=== PATIENT | female | born 1940 | race Caucasian/White ===

== ENCOUNTER 2016-12-25 18:28 | Inpatient (IN) | payer MEDICARE, OTHER ==
--- NOTE | ~2016-12-25 | CN ---
Consultation Report [facility] [address] [place]. [address] NAME: MOISES PERALTA : 42 STATUS : ADM IN [facility]#: [id number] AGE: 76 ADM/REG DATE : 12/25/16 MR#: [id number] REPORT SERV DATE: 12/31/16 DICTATED BY: CHUCK OLSEN DATE: 12/31/16 REPORT STATUS : Draft TRANSCRIBED BY: MODL DATE: 12/31/16 SURGICAL CONSULTATION DATE OF CONSULTATION: 12/31/2016 HISTORY OF PRESENT ILLNESS: I was asked to see the patient for a history of pressure ulcers. She has been followed in the [facility] in the past initially for a nonhealing chest incision after bypass with bilateral EUGENIA harvesting. She has significant past medical history including morbid obesity, coronary artery disease, status post CABG, obstructive sleep apnea, chronic kidney disease stage 3 to 4, diastolic heart failure, myelodysplastic syndrome, and paroxysmal atrial fibrillation. The patient was documented to have moderate- to-severe protein-calorie malnutrition upon her admission to the hospital. She has had uncontrolled blood glucoses in the 500s. She is noncompliant with her diet. She is noncompliant with offloading. She is noncompliant with her medical care. I was asked to see the patient for her history of pressure ulcers of the sacrum, which we have seen in the past. On exam today, the patient has one small pressure ulcer that is stage I or II with no redness, swelling, or pain. Her other previous ulcers that were seen have healed. PAST MEDICAL HISTORY: As above with recurrent urinary tract infections and Charcot joints. PAST SURGICAL HISTORY: Coronary artery bypass with sternal infection, gastric bypass, hysterectomy, cholecystectomy, bilateral lower extremity venous stripping. ALLERGIES: PENICILLIN, LYRICA, PHENERGAN, AND SULFA. MEDICATIONS: Please see hospital chart. SOCIAL HISTORY: The patient lives with her daughter in [place]. She denies alcohol, tobacco, or illicit drug usage. FAMILY HISTORY: Positive for heart disease and stroke. REVIEW OF SYSTEMS: No headache, blurred vision, dizziness, chest pain, shortness of breath, cough, dyspnea on exertion, syncope, palpitations, jaundice, or itching. PHYSICAL EXAMINATION: GENERAL: Well-developed female, in no apparent distress. NECK: Supple. No adenopathy. CARDIOVASCULAR: Regular rate and rhythm. RESPIRATORY: Clear to auscultation. ABDOMEN: Obese, soft, nondistended. BACK: No CVA tenderness. The patient has a stage II pressure ulcer of the left buttock with no swelling, pain, drainage, or redness. Consultation Report [facility] [address] [place]. [address] NAME: MOISES PERALTA : 42 STATUS : ADM IN PAT#: [id number] AGE: 76 ADM/REG DATE : 12/25/16 MR#: [id number] REPORT SERV DATE: 12/31/16 DICTATED BY: CHUCK OLSEN DATE: 12/31/16 REPORT STATUS : Draft TRANSCRIBED BY: RUBÉN DATE: 12/31/16 ASSESSMENT: 1. Multiple medical problems as above. 2. Stage II pressure ulcer of left buttock with marked improvement with hospitalization, increased nutrition, offloading, and medical compliance. PLAN: Recommend continued medical optimization, offloading bed, supportive nutrition and follow up with me on an outpatient basis in the [facility] with continued dressings as ordered. /RUBÉN Chuck Olsen M.D. / [id number] CC: Mohit Valentine M.D.
--- NOTE | ~2016-12-25 | PUL ---
[address] [address] NAME: MOISES PERALTA : 41 STATUS : ADM IN PAT#: [id number] AGE: 76 ADM/REG DATE : 12/25/16 MR#: [id number] REPORT SERV DATE: 01/03/17 DICTATED BY: JENNIFER BENAVIDEZ DATE: 01/03/17 REPORT STATUS : Draft TRANSCRIBED BY: MODL DATE: 01/03/17 PULMONARY FUNCTION TEST Overnight oximetry was performed on room air. Total valid sampling time was 6 hours 13 minutes. Saturations were less than 88% for 15 minutes and 50 seconds. INTERPRETATION: Abnormal oximetry report. Consider oxygen titration study or sleep study. Clinical correlation is recommended. RANJITH/RUBÉN Jennifer Benavidez M.D. / [id number] CC: Mohit Valentine M.D.
--- NOTE | ~2016-12-25 | HP ---
History And Physical [facility] [address] [place]. [address] NAME: MOISES PERALTA : 41 STATUS : ADM IN PAT#: [id number] AGE: 76 ADM/REG DATE : 12/25/16 MR#: [id number] REPORT SERV DATE: 12/26/16 DICTATED BY: MALIHA TORRES DATE: 12/25/16 REPORT STATUS : Draft TRANSCRIBED BY: MODL DATE: 12/25/16 DATE OF ADMISSION: 12/25/2016 CHIEF COMPLAINT: Weakness. 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 The patient is accompanied by family members, son, daughter, and [id number], who reports that the patient over the last three weeks has been having progressive weakness, although family recognized approximately two weeks ago the patient reports that she believes symptoms occurred approximately three weeks ago, they have been constant, progressive, initially mild progressed to moderate now, currently quite severe as she is unable to perform her ADLs. Although, she does not report any pain or radiating symptoms; does have a little bit of nausea and reported anorexia with decreased taste for food. She has had approximately 12- pound weight drop, although she reports that she has been trying to drink as much as she could. Has also had very uncontrolled blood sugars in the 500s. Also reported to have drunk a few soda pops prior to coming in. The patient's diary of blood sugars have been at best low 200s, but has ranged from 200 to 500 over the last few weeks. The patient additionally has been on continued diuretics with b.i.d. type diuretics twice a day, although she is still making urine output. Does not report any dysuria, chest pain, fevers, chills, or any new rashes. Does have Charcot joint which cause limiting activity in her feet. Symptoms are worsened with activity, weakness, and is fairly global. There are no relieving symptoms. Symptoms are currently present. There have been no change in diuretic, has seen Dr. Manriquez's nurse practitioner approximately one month ago, and at that time her kidney function was well. However, on arrival to emergency room, she is noted to be in acute renal injury. The patient additionally complains of symptoms of shaking type symptoms which have also been reported in multiple other prior admissions. Family is fairly frustrated about recurrent episodes of being volume overloaded and then being dehydrated with more frequent dehydration admissions as well as having difficulties with potassium balance and is also requesting Nephrology consultation in order to make a full complete plan. REVIEW OF SYSTEMS: GENERAL: No fevers or chills, but generalized weakness. Fairly profound. EYES: No visual pain or change, but is unable to make eye shapes from left eye. ENT: No ear pain or sinuses. NEURO: No headache. Occasional fatigue and tiredness with sleeping episodes on family. SKIN: No rashes or bruising. RESPIRATORY: No shortness of breath. No wheezing. CV: No chest pain, but no edema. GI: Does have nausea, but no vomiting, diarrhea, or constipation. : No dysuria, hematuria, or urgency. Does have frequency with occasional incontinence that is not acute. History And Physical [address] [address] NAME: MOISES PERALTA : 42 STATUS : ADM IN [facility]#: [id number] AGE: 76 ADM/REG DATE : 12/25/16 MR#: [id number] REPORT SERV DATE: 12/26/16 DICTATED BY: MALIHA TORRES DATE: 12/25/16 REPORT STATUS : Draft TRANSCRIBED BY: RUBÉN DATE: 12/25/16 MUSCULOSKELETAL: No myalgias or arthralgias grossly, but generalized weakness. Does have chronic back discomfort. ENDO: Does have increased fatigue and very difficult to control blood sugars recently, increased doses of mealtime insulin to 50 units after discussion with Dr. Friedman, her nuclear fuel processing technician. 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 IMMUNOLOGIC: No rhinorrhea. PSYCH: No anxiety, but occasional mild confusion type sleeping type episodes. PAST MEDICAL HISTORY: Diabetes with peripheral neuropathy and left eye involvement, coronary disease status post CABG, obstructive sleep apnea, CKD stage 3-4 with baseline creatinine of 2, diastolic heart failure, recurrent UTIs with prior resistant E. coli, hypothyroidism, hyperlipidemia, hypertension, mild dysplastic syndrome, anemia on chronic Aranesp, paroxysmal atrial fibrillation, Charcot joints, chronic debility, recurrent admissions for dehydration and volume overload as well as hyper and hypokalemia per family. PAST SURGICAL HISTORY: CABG, sternal infection with hyperbaric oxygen treatment, stomach stapling, hysterectomy, cholecystectomy, bilateral vein stripping, buttock and groin abscesses with I and D, currently under care of Wound Care for chronic decubitus by Dr. Covarrubias and Home Health. ALLERGIES: TO PENICILLIN, LYRICA, PHENERGAN, AND SULFA. SOCIAL HISTORY: Lives with daughter in [place]. Does not smoke or drink. FAMILY HISTORY: Heart disease, and stroke. EKG rate 114, sinus tachycardia. Sinusoidal T wave V4 through V6. Q-wave in 3. These changes can be seen in EKGs in May 2016 and September 2016. HOME MEDICATIONS: 1. Tylenol. 2. Aspirin. 3. Lipitor. 4. Coreg. 5. Pepcid. 6. Uloric. 7. Neurontin. 8. [place]. 9. Toujeo. 10.Humalog. 11.Synthroid. 12.Zofran. 13.Klor-Con. 14.Aldactone. 15.Demadex. 16.Ultram. History And Physical [address] [address] NAME: MOISES PERALTA : 42 STATUS : ADM IN [facility]#: [id number] AGE: 76 ADM/REG DATE : 12/25/16 MR#: [id number] REPORT SERV DATE: 12/26/16 DICTATED BY: MALIHA TORRES DATE: 12/25/16 REPORT STATUS : Draft TRANSCRIBED BY: RUBÉN DATE: 12/25/16 PHYSICAL EXAMINATION: VITAL SIGNS: The patient has a blood pressure of 141/81, temperature 98.7, pulse 116, respirations 20, and O2 saturations 95% on room air. GENERAL: Elderly frail, but obese. No acute distress at rest. EYES: No scleral icterus. Decreased visual acuity in left eye. ENT: Nares patent. Dry mucous membranes. RESPIRATORY: Clear to auscultation. No wheezes. CV: Sinus tachycardiac. No pedal edema. Mild systolic ejection murmur. No rubs. No JVD. Cap refill less than 2 seconds. GI: Soft, nontender, and nondistended. Bowel sounds positive. : Deferred. MUSCULOSKELETAL: Moves all extremities x4; however, grossly and diffusely weak. SKIN: Warm and dry with positive tenting. Dry skin on lower extremities. No petechiae or bruising. LYMPH: No cervical or supraclavicular lymphadenopathy grossly. HEME: No bleeding or bruising. NEURO: Alert and oriented. Lower extremity strength approximately 3+/5 bilateral equal. Babinski is slightly decreased. Sensations decreased in bilateral lower extremities. Strength in hands symmetric, but approximately 4+ bilaterally. Gait untested due to weakness. Difficulty with lifting self from lying to a sitting position. Does have a resting tremor. Normal vocal suad. Occasionally sleeps on evaluation. PSYCH: Appropriate mood and affect. LABORATORY DATA: Urinalysis: Negative leukocyte esterase and nitrites. Sodium 132, potassium 5.0, chloride 93, bicarb 27, BUN and creatinine 83 and 2.38, and glucose 311. Troponin less than 0.02. Magnesium 2.2. Calcium 9.0. Heme profile: WBC 11.2, H and H 9.5 and 28.8, MCV 95.7 with platelets 255. INR 1.1. Portable chest: No acute cardiopulmonary findings. ASSESSMENT AND PLAN: 1. Acute kidney injury with chronic kidney disease followed by Dr. Manriquez. 2. Diabetes with poorly controlled blood sugars followed by Dr. Friedman. 3. Anemia, myelodysplastic syndrome, followed by Dr. Paulson. 4. Weakness, fairly profound. 5. Heart failure with preserved ejection fraction. 6. Paroxysmal atrial fibrillation. 7. Decubitus ulcers present on arrival, followed by Dr. Covarrubias in Wound Care. PLAN: 1. KEE with CKD. Continue to monitor urine electrolytes. Stop Demadex and spironolactone. The patient is clinically volume depleted with dry mucous membranes. Temporal skin tenting. Family requesting Renal consultation also as the patient has History And Physical [address] [address] NAME: MOISES PERALTA : 42 STATUS : ADM IN [facility]#: [id number] AGE: 76 ADM/REG DATE : 12/25/16 MR#: [id number] REPORT SERV DATE: 12/26/16 DICTATED BY: MALIHA TORRES DATE: 12/25/16 REPORT STATUS : Draft TRANSCRIBED BY: MODL DATE: 12/25/16 had multiple frequent hospitalizations for similar episode. The patient reports having a 12-pound weight loss which appears possibly secondary due to volume. We will additionally for completeness of workup check CPK, myoglobin, and cortisol. Gentle IV fluids given in the emergency room to reassess clinical response. 2. Diabetes type 2 with hyperglycemia, not well controlled. The patient has had recent increase. I am concerned also with diet choices, diabetic education along with changing from home use of currently at 230 units of insulin with 50 with meals and 80 units of Toujeo. We will do transition to 30 units b.i.d. Levemir, 10 with meals with diet control and adjust as needed. A1c ordered. Diabetic Education also consult. 3. Anemia with myelodysplastic disorder. Follows with Dr. Paulson. Monitor CBC. 4. Weakness. Monitor lytes likely secondary to KEE as the patient has similar weaknesses in the past. We will additionally check CPK. Hold statin. Has fairly profound weakness on physical exam, we will need PT/OT evaluation. Questionable rehab may be of benefit. 5. Heart failure with preserved ejection fraction, volume depleted. Monitor I's and O's. Gentle IV fluids. 6. Paroxysmal atrial fibrillation. Beta laz. 7. Decubitus ulcers. Wound Care consult. Follows with Dr. Covarrubias in the Wound Care Clinic. All questions answered with the patient and family. DISPOSITION: Pending response clinically. DDN/MODL Maliha Torres MD / [id number] CC: Mohit Moore M.D.
--- NOTE | ~2016-12-25 | IDS ---
Interim Discharge Summary [facility] [address] [place]. [address] NAME: MOISES PERALTA : 42 STATUS : ADM IN [facility]#: [id number] AGE: 76 ADM/REG DATE : 12/25/16 MR#: [id number] REPORT SERV DATE: 01/06/17 DICTATED BY: ALLYN CARR DATE: 01/05/17 REPORT STATUS : Draft TRANSCRIBED BY: MODL DATE: 01/05/17 ADMISSION DATE: 12/25/2016 DISCHARGE DATE: Interim summary covers period 12/30/2009 to 01/05/2010. CURRENT DIAGNOSES: 1. 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 Improving on corticosteroids. On Uloric 40 mg daily with uric acid pre-acute event 10.2. 2. Uncontrolled diabetes with hemoglobin A1c of 10.1. Blood sugars earlier this week 300 and 400s. Currently improved control on high dose basal and bolus insulin therapy with blood sugars today a.c. 159, 160, and 161. 3. Acute kidney injury improving with creatinine on admission 2.38, today 1.37. 4. Chronic kidney disease 3 to 4. 5. Rectal and perirectal pain with ulcerations improving with topical therapy. 6. Left Charcot foot. Followed by podiatry, Dr. Huitron in the outpatient setting. 7. Chronic diastolic heart failure. 8. Coronary artery disease, post coronary artery bypass grafting. 9. Hypertension. 10.Paroxysmal atrial fibrillation. 11.Morbid obesity. 12.Myelodysplastic syndrome with chronic anemia. Procrit this week. 13.Hypothyroid, on replacement. 14.Chronic pain syndrome. 15.Recurrent urinary tract infections with voiding dysfunction and occasional self intermittent catheterization at home, currently with Andrade catheter. 16.Sleep apnea, per overnight oximetry. O2 declined because of nasal irritation at this time. 17.Hyperlipidemia. 18.Peripheral arterial disease by exam. 19.Wound, present on admission, followed by Dr. Covarrubias in Wound Clinic. OPERATIONS AND PROCEDURES: None. INTERIM SUMMARY: This is a 76-year-old white female, who was admitted by Dr. Valladares on 12/25/2016, with acute kidney injury and uncontrolled diabetes in the setting of multiple comorbidities as described on admission history and physical examination. HOSPITAL COURSE: Her hospital course from admission through 12/29 is as outlined on interim summary dictated by Simon Domínguez. Interim summary, 12/30 through 01/05 as noted by Simon Domínguez, she developed acute pain in her right wrist 2nd and 3rd MCPs and some DIPs and PIPs with obvious synovitis. Imaging of her right hand disclosed no acute abnormality with mild osteoarthritic changes, right hand. There were minimal marginal erosions at the distal aspect of the proximal 4th phalanx as well as some erosive change of ulnar styloid process. Vascular calcification was noted, but Interim Discharge Summary [address] [place]. [address] NAME: MOISES PERALTA : 42 STATUS : ADM IN PAT#: [id number] AGE: 76 ADM/REG DATE : 12/25/16 MR#: [id number] REPORT SERV DATE: 01/06/17 DICTATED BY: ALLYN CARR DATE: 01/05/17 REPORT STATUS : Draft TRANSCRIBED BY: RUBÉN DATE: 01/05/17 arterial flow studies did not disclose occlusive disease. When seen by the undersigned, it was noted she was on Uloric 40 mg daily. A uric acid was checked and was 10.2. Acute gout was thought to be a possibility. She was initially given IV corticosteroids with fairly dramatic improvement. Improvement has continued with tapering to oral corticosteroids and topical Voltaren gel. Formal Rheumatology consultation needed as an outpatient. Her blood sugar control on the was not adequate with blood sugars on the rising into the 400s. With intensification of her basal bolus correction regimen, blood sugar control has improved as noted above. She has had continued improvement in her acute kidney injury. She was seen by Nephrology on admission to have subsequently signed off. Current creatinine is as noted. She developed intense rectal and perirectal pain. Examination disclosed some pressure phenomena plus superficial ulcerations. She does not have an impaction or mass on rectal exam. With local care, she is symptomatically improved. She has myelodysplastic syndrome. Hemoglobins have been stable in the 8. She received Procrit on the . A B12 level today is 924 and ferritin 351. Initially during her hospitalization, there was a hope by the patient's family that she would qualify for [facility]. At this time, her physical capabilities preclude that as a destination. [place] [facility]. Hospitalist care to be assumed by [facility] [place] [address] team on 01/06/2017. DD/MODL Allyn Carr M.D. / [id number] CC: Mohit Valentine M.D.
--- NOTE | ~2016-12-25 | DS ---
Discharge Summary [facility] [address] [place]. [address] NAME: MOISES PERALTA : 42 STATUS : DIS IN PAT#: [id number] AGE: 76 ADM/REG DATE : 12/25/16 MR#: [id number] REPORT SERV DATE: 01/08/17 DICTATED BY: AVERY WHALEY DATE: 01/07/17 REPORT STATUS : Draft TRANSCRIBED BY: MODL DATE: 01/07/17 ADMISSION DATE: 12/25/2016 DISCHARGE DATE: 01/07/2017 DISCHARGE DIAGNOSES: 1. Suspected polyarticular gout, with positive JAKE. The patient had some response to steroids. 2. Uncontrolled insulin-dependent diabetes type 2. 3. Acute kidney injury on chronic kidney disease, baseline stage 3 to 4. Creatinine on discharge is 1.3. 4. Rectal and perirectal pain due to superficial ulcerations, improving with topical therapy. 5. Anemia with myelodysplastic syndrome, on Procrit. 6. Chronic diastolic congestive heart failure. 7. Paroxysmal atrial fibrillation. 8. Stage II decubitus ulcer. 9. Hypertension. 10.Coronary artery disease with history of CABG. 11.Obstructive sleep apnea. 12.Morbid obesity. 13.Recurrent urinary tract infections. 14.Hypothyroidism. CONSULTS: 1. Dr. Abernathy of Nephrology. 2. Dr. Covarrubias of Surgery. 3. Dr. Benavidez of Pulmonology. PROCEDURES: None. HOSPITAL COURSE: This is a 76-year-old lady with multiple medical conditions as mentioned above who was initially admitted to the hospital with generalized weakness and acute kidney injury. For details, please refer to H and P dictated by Dr. Valladares. Also, refer to interim discharge summaries by Simon Domínguez as well as Dr. Carr. I assumed care of this patient on 01/05/2017 and actually by then, the patient was ready for discharge and awaiting a halfway facility placement. At that point in time, her main issue was inflamed joints in her right hand. The patient does have a history of gout, and she has been on Uloric. Dr. Carr had already started steroids, and the patient had some response to the steroids. The patient does actually have an appointment with Dr. Uriostegui, a chief fishery division in a week and a half as an outpatient, which she was strongly encouraged to make. Otherwise, all of the patient's presenting medical complaints as well as chronic medical conditions have either been resolved or been stable. The patient is now being discharged to [facility] to continue rehab. DISPOSITION: Discharged to [facility]. Discharge Summary [address] [address] NAME: MOISES PERALTA : 42 STATUS : DIS IN PAT#: [id number] AGE: 76 ADM/REG DATE : 12/25/16 MR#: [id number] REPORT SERV DATE: 01/08/17 DICTATED BY: AVERY WHALEY DATE: 01/07/17 REPORT STATUS : Draft TRANSCRIBED BY: RUBÉN DATE: 01/07/17 FOLLOWUP: 1. Please follow up with PCP in the next one to two weeks. 2. Please follow up with Dr. Uriostegui as already scheduled. A total of 40 minutes spent in coordinating this patient's discharge today. TRAE/RUBÉN Avery Whaley MD / [id number] CC: MD Bharat Castaneda M.D.
--- NOTE | ~2016-12-25 | IDS ---
Interim Discharge Summary [facility] [address] [place]. [address] NAME: MOISES PERALTA : 42 STATUS : ADM IN PAT#: [id number] AGE: 76 ADM/REG DATE : 12/25/16 MR#: [id number] REPORT SERV DATE: 12/29/16 DICTATED BY: PHILLIP MEDRANO DATE: 12/29/16 REPORT STATUS : Draft TRANSCRIBED BY: MODL DATE: 12/29/16 ADMISSION DATE: 12/25/2016 DISCHARGE DATE: CURRENT INTERIM DIAGNOSES: List includes: 1. Acute kidney injury on chronic kidney disease, stage 3 to 4, resolved to baseline, most recent creatinine 1.87. 2. Acute encephalopathy, metabolic. 3. Right hand and wrist pain with x-ray showing atherosclerotic changes in the radial artery. 4. Diabetes type 2, uncontrolled, hemoglobin A1c 10.1. 5. Weakness and fall. 6. Hypoalbuminemia, most recent albumin 2.4. 7. Chronic anemia. 8. Chronic diastolic heart failure. 9. History of coronary artery disease and CABG. 10.History of Charcot, left lower extremity. 11.Morbid obesity. 12.Chronic debility. 13.Myelodysplastic syndrome. HISTORY OF PRESENT ILLNESS: A 76-year-old female with significant comorbid diseases, presented with weakness to [facility] Emergency Room. Please see initial H and P of Dr. Deuce Valladares. The patient admitted to the Hospitalist Service for further evaluation and treatment. Initially, the patient was given hydration with IV fluids, and diuretics were stopped as she was found to be in acute kidney injury and clinically dehydrated. PROCEDURES AND IMAGING DURING THIS ADMISSION: Include x-ray of the right wrist showing no acute fracture but acceleration of atherosclerotic changes in the radial artery. CONTINUATION OF HOSPITAL COURSE: I began seeing the patient on 12/26/2016. Consults during this admission also included Nephrology associates. Kidney function had seem to at least plateau with her creatinine trending to 2.34. Her diuretics were continued on hold and IV hydration was continued for approximately 2.5 L and this continued to improve her kidney function with creatinine falling the following day to 1.97. She was overall feeling better and not quite as weak but did complain of some right wrist pain. On exam, she did have some snuffbox tenderness and x-ray as stated above was ordered. Her torsemide was then resumed at a lower dose and have discussed extensively with Nephrology as she had been on a rather hefty dose of torsemide as an outpatient as she is now currently on 20 mg twice a day. She did have a history of obstructive sleep apnea but does not wear CPAP, so an overnight oximetry test was ordered which did come back quite significant for hypoxemia, so she will definitely need oxygen therapy as an outpatient following discharge. She continued to do reasonably well, although on the morning of 12/29/2016, the patient was extremely drowsy and some encephalopathy noted. She did receive a dose of Klonopin the night before and this was Interim Discharge Summary [address] [address] NAME: MOISES PERALTA : 42 STATUS : ADM IN PAT#: [id number] AGE: 76 ADM/REG DATE : 12/25/16 MR#: [id number] REPORT SERV DATE: 12/29/16 DICTATED BY: PHILLIP MEDRANO DATE: 12/29/16 REPORT STATUS : Draft TRANSCRIBED BY: RUBÉN DATE: 12/29/16 discontinued, and ammonia was checked which came back negative. She had no focal deficits, and as the day progressed, she slowly improved and was able to converse and was oriented to person, and place and family members. She did persist to have right hand and wrist pain, and an arterial ultrasound was ordered of this right upper extremity with consideration for CT or MRI of the wrist if pain continues. Discussed at length with the daughter and at bedside the patient's multiple comorbidities and functional decline and the likely difficult recovery from all of this. Physical therapy and occupational Therapy saw the patient, did recommend rehab which is the current disposition. Nephrology has recommended two-week follow up with them. FANNY/RUBÉN Phillip Medrano NP / [id number] CC: Mohit Moore M.D.
--- NOTE | ~2016-12-25 | CN ---
Consultation Report [facility] [address] [facility] [place] [place]. [address] NAME: MOISES PERALTA : 42 STATUS : ADM IN PAT#: [id number] AGE: 76 ADM/REG DATE : 12/25/16 MR#: [id number] REPORT SERV DATE: 12/26/16 DICTATED BY: ODALYS BONILLA DATE: 12/26/16 REPORT STATUS : Draft TRANSCRIBED BY: MODL DATE: 12/26/16 NEPHROLOGY CONSULTATION DATE OF CONSULTATION: 12/26/2016 CHIEF COMPLAINT: Weakness. HISTORY OF PRESENT ILLNESS: Mrs. Peralta is a pleasant 76-year-old white female with past medical history of diabetes mellitus, hypertension, chronic kidney disease stage 3/4, followed by Dr. Marco A Manriquez in our practice. She has multiple other medical problems including heart failure with preserved ejection fraction, myelodysplastic syndrome, anemia of chronic disease, and paroxysmal atrial fibrillation. She presents to the hospital with three weeks of progressive weakness to the point she has been unable to stand up or get out of bed and has been unable to perform her activities of daily living. She has had some nausea, but no chest pain or shortness of breath. No diarrhea or constipation. Her blood sugars have been running in the 500s. She has been on chronic diuretics for edema, torsemide 60 mg in the morning and 40 mg at night. The daughter states that this has not been recently changed. On presentation, her creatinine was 2.3. Baseline creatinine ranges 1.5 to 2.0. Her diuretics have been transiently put on hold and she is receiving intravenous hydration. PAST MEDICAL HISTORY: 1. Chronic kidney disease stage 3, followed by Dr. Marco A Manriquez. 2. Coronary artery disease, status post CABG. 3. Obstructive sleep apnea. 4. Heart failure with preserved ejection fraction. 5. Recurrent urinary tract infections. 6. Hypothyroidism. 7. Hyperlipidemia. 8. Hypertension. 9. Myelodysplastic syndrome. 10.Anemia of chronic disease. 11.Paroxysmal atrial fibrillation. PAST SURGICAL HISTORY: 1. CABG. 2. Sternal wound infection requiring debridement. 3. Hysterectomy. 4. Cholecystectomy. 5. Bilateral vein stripping. 6. Debridement of buttock and groin abscesses. ALLERGIES: PENICILLIN, LYRICA, PHENERGAN, AND SULFA. Consultation Report [facility] [address] [facility] [place] [place]. [address] NAME: MOISES PERALTA : 42 STATUS : ADM IN PAT#: [id number] AGE: 76 ADM/REG DATE : 12/25/16 MR#: [id number] REPORT SERV DATE: 12/26/16 DICTATED BY: ODALYS BONILLA DATE: 12/26/16 REPORT STATUS : Draft TRANSCRIBED BY: RUBÉN DATE: 12/26/16 SOCIAL HISTORY: Lives with her daughter in [place], [place]. Does not smoke cigarettes or drink alcohol. FAMILY HISTORY: Heart disease and stroke. HOME MEDICATIONS: 1. Acetaminophen 500 mg two tablets daily. 2. Aspirin 81 q. day. 3. Atorvastatin 40 q. day. 4. Carvedilol 3.125 twice a day. 5. Famotidine 20 q. day. 6. Uloric 40 q. day. 7. Neurontin 300 three times a day. 8. Hydrocodone 10/325 q.6 hours. 9. Lantus insulin 80 units at bedtime. 10.Lispro insulin 15 units t.i.d. 11.Synthroid 25 mcg q. day. 12.Potassium chloride 10 mEq q. day. 13.Spironolactone 25 mg q. day. 14.Torsemide 60 mg every morning and 40 mg at night. 15.Tramadol 50 q.6 hours p.r.n. pain. REVIEW OF SYSTEMS: All systems reviewed and negative excluding those mentioned and highlighted in the history of present illness. PHYSICAL EXAMINATION: VITAL SIGNS: Blood pressure 131/74, oxygen saturation 93%, temperature 96.3, pulse 106, respiratory rate 18, and oxygen saturation 96%. GENERAL: This is a pleasant elderly white female resting comfortably, in no acute distress. HEENT: Normocephalic, atraumatic. Oropharynx is clear. No exudate. NECK: Supple. No JVD or thyromegaly. No carotid bruits. Trachea midline. No stridor. CARDIOVASCULAR: Irregular S1, S2. No rubs or gallops. Point of maximal impulse nondisplaced. RESPIRATORY: Mostly clear. No wheezes, rhonchi, tachypnea, or accessory muscles in use. GASTROINTESTINAL: Abdomen is obese, soft, nontender, nondistended. No hepatosplenomegaly appreciated. EXTREMITIES: No cyanosis or clubbing. She has trace to 1+ pitting edema. LYMPH: No supraclavicular, cervical, or axillary adenopathy. SKIN: No rash or breakdown. Normal turgor. LABORATORIES AND DIAGNOSTIC DATA: Sodium 131, potassium 4.7, chloride 94, bicarb 27, BUN 79, creatinine 2.34, glucose 370. CPK is 21. Urinalysis shows bacteria, but no pyuria with specific gravity of 1.009. Consultation Report [address] [place]. [address] NAME: MOISES PERALTA : 42 STATUS : ADM IN PAT#: [id number] AGE: 76 ADM/REG DATE : 12/25/16 MR#: [id number] REPORT SERV DATE: 12/26/16 DICTATED BY: ODALYS BONILLA DATE: 12/26/16 REPORT STATUS : Draft TRANSCRIBED BY: RUBÉN DATE: 12/26/16 ASSESSMENT: 1. Weakness and failure to thrive. 2. Mild acute kidney injury on chronic kidney disease stage 4 versus progression of chronic kidney disease. I suspect she has mild prerenal azotemia. 3. Diabetes mellitus with poor glycemic control. 4. Mild hyponatremia, which is likely related to hyperglycemia. 5. Atrial fibrillation ? 6. Heart failure through preserved ejection fraction. 7. Myelodysplastic syndrome. PLAN: 1. Agree with interruption diuretics and gentle fluids. We will cut the rate down to 75 mL an hour and lock after 2 L. 2. Serial labs. 3. We will follow with you. Thank you for this consultation. JESSICA/RUBÉN Odalys Bonilla M.D. / [id number] CC: Mohit Moore M.D.
[2016-12-25 17:24] LABS: BASOPHILS 0.1 %; BASOPHILS ABSOLUTE 0.01 10/3/uL (0.0-0.16); EOSINOPHILS 1.4 %; EOSINOPHILS ABSOLUTE 0.16 10/3/uL (0.0-0.53); HEMATOCRIT 28.8 % (36.0-48.0); HEMOGLOBIN 9.5 g/dL (12.0-16.0); IMMATURE GRANULOCYTES 0.9 %; LYMPHOCYTES 6.9 %; LYMPHOCYTES ABSOLUTE 0.78 10/3/uL (0.67-4.30); MANUAL DIFF NO %; MEAN CORPUSCULAR HEMOGLOB 31.6 pg (26.0-34.0); MEAN CORPUSCULAR VOLUME 95.7 fL (80-100); MEAN PLATELET VOLUME 9.1 fL (9.2-13.0); MONOCYTES 6.7 %; MONOCYTES ABSOLUTE 0.75 10/3/uL (0.21-1.20); NEUTROPHILS ABSOLUTE 9.43 10/3/uL (2.02-8.40); PLATELET COUNT 255 10/3/uL (150-400); RBC DISTRIBUTION WIDTH 16.1 % (12.0-16.0); RED CELL COUNT 3.01 10/6/uL (4.0-5.6); WHITE BLOOD CELLS 11.2 10/3/uL (4.5-10.5)
[2016-12-25 17:31] LABS: INTERNATIONAL NORMAL RATI 1.1 UNITS (-); PARTIAL THROMBO TIME 36.2 SEC (22.5-37.2); PROTIME (NOT ORD) 14.3 SEC (12.0-14.5)
[2016-12-25 17:40] LABS: CHEST PAIN PROFILE TAT 0 Hrs 20 Mins; CO2 (CARBON DIOXIDE) 27 MMOL/L (24-34); TROPONIN I <0.02 NG/ML (<0.05)
[2016-12-25 17:43] LABS: BUN (BLOOD UREA NITROGEN) 83 MG/DL (6-23); CHLORIDE, SERUM 93 MMOL/L (96-112); CREATININE 2.38 MG/DL (0.55-1.02); GFR AFRICAN AMERICAN 22 ML/MIN (>=60); GFR NON AFRICAN AMERICAN 19 ML/MIN (>=60); GLUCOSE, SERUM 311 MG/DL (60-99); SODIUM, SERUM 132 MMOL/L (135-148)
[2016-12-25 17:45] LABS: ASCORBIC ACID (UR NOT ORDER) NEG (NEG); BILIRUBIN, URINE NEGATIVE (NEG); ER URINALYSIS TAT 0 Hrs 07 Mins; KETONE, URINE NEGATIVE (NEG); LEUKOCYTE ESTERASE(NOT OR NEG (NEG); NITRITE (URINE) NEG (NEG); WBC (NOT ORDERED) (RFLEX) 1 (0-5)
[~2016-12-25 18:28] MED LIST: ACET500CAP PO; ALPHA LIPOIC PO; ALPHA LIPOIC300 MG PO; ALPHA-LIPOIC50 MG PO; AMARYL4 PO; ARANESP; ARANESP IM; ASAB PO; BEN25 PO; BIOTIN5 MG PO; CEFAZ1 IV; CEFT2 PO; CEFT5 PO; CIP2 PO; CITRUCEL500 MG PO; CITRUCELSF PO; COREG3 PO; COREG6 PO; CRESTOR10 PO; CRESTOR40 MG PO; CYANO1000T PO; DEMA100 PO; DEMA20 PO; DURICEF PO; FLORASTOR250 MG PO; FORTAMET500 MG PO; GLUCPH PO; GLUMETZA500 MG PO; HALF81 PO; HARD NAILS OR; HUMALOG SC; HUMALOGMIX SC; IMOD PO; ISOSORB DIN30 MG PO; KDUR10 PO; KDUR20 PO; KLOR-CON 1010 MEQ PO; KLOR-CON M2020 MEQ PO; KOMBIGLYZE XR1 EAC1 PO; L40 PO; LANTUS SC; LEVOTHYROXIN25 MCG PO; LIPITOR40 PO; MAGNEBIND PO; MCZ25 PO; MIRALAXPKT PO; MULTIPLE VIT PO; MULTIVIT/MIN PO; NASAL MOIST0.65 % NAS; NEUR100 PO; NEUR300 PO; NITROQUICK0.4 MG SL; NITROSTAT0.4 MG SL; NORCO1 TA1 PO; NORCO1 TAB PO; NOVOLOG; OXYCOD PO; PCET PO; PEP20 PO; PLAVIX PO; PRIN10 PO; PRIN20 PO; PRIN5 PO; PROBIOTIC PO; PYR100B; ROCEPH IM; SPIRO25 PO; SYN.025B PO; THERAPEUTIC PO; THERGRANM; TOUJEO SC; TOVIAZ4 MG PO; ULORIC40 MG PO; ULTRAM50 PO; VESICARE10 MG PO; VIB50 PO; VITAMIN B-121000 MC1 SL; Z5 PO; ZESTRIL10 MG PO; ZOFRAN4 PO
[2016-12-25 23:32] LABS: A/G RATIO 0.7 (0.7-1.9); ALBUMIN 2.7 G/DL (3.5-5.0); CHLORIDE, SERUM 93 MMOL/L (96-112); CO2 (CARBON DIOXIDE) 28 MMOL/L (24-34); CREATININE 2.38 MG/DL (0.55-1.02); FREE T4 0.89 NG/DL (0.76-1.46); GFR AFRICAN AMERICAN 22 ML/MIN (>=60); GFR NON AFRICAN AMERICAN 19 ML/MIN (>=60); GLOBULIN 4.1 G/DL (2.5-4.1); GLUCOSE, SERUM 326 MG/DL (60-99); PHOSPHORUS, SERUM 2.8 MG/DL (2.5-4.5); POTASSIUM, SERUM 5.5 MMOL/L (3.5-5.3); SGOT(AST) 9 U/L (5-40); SGPT(ALT) 16 U/L (5-65); SODIUM, SERUM 130 MMOL/L (135-148); TOTAL BILIRUBIN 0.3 MG/DL (0-1.2); TOTAL PROTEIN 6.8 G/DL (6.0-8.5)
[2016-12-25 23:33] LABS: ALKALINE PHOSPHATASE 141 U/L (45-117); BUN (BLOOD UREA NITROGEN) 79 MG/DL (6-23)
[2016-12-26 01:17] LABS: PROCALCITONIN 1.33 ng/mL (<0.5)
[2016-12-26 01:46] LABS: BASOPHILS 0.1 %; BASOPHILS ABSOLUTE 0.01 10/3/uL (0.0-0.16); EOSINOPHILS 2.3 %; EOSINOPHILS ABSOLUTE 0.21 10/3/uL (0.0-0.53); HEMATOCRIT 26.2 % (36.0-48.0); HEMOGLOBIN 8.6 g/dL (12.0-16.0); IMMATURE GRANULOCYTES 0.6 %; IMMATURE GRANULOCYTES ABSOLUTE 0.06 10/3/uL (0.0-0.11); LYMPHOCYTES 13.5 %; LYMPHOCYTES ABSOLUTE 1.25 10/3/uL (0.67-4.30); MEAN CORPUS HGB CONC 32.8 g/dL (32.0-36.0); MEAN CORPUSCULAR HEMOGLOB 31.4 pg (26.0-34.0); MEAN CORPUSCULAR VOLUME 95.6 fL (80-100); MEAN PLATELET VOLUME 9.4 fL (9.2-13.0); MONOCYTES 5.1 %; MONOCYTES ABSOLUTE 0.47 10/3/uL (0.21-1.20); NEUTROPHILS 78.4 %; NEUTROPHILS ABSOLUTE 7.28 10/3/uL (2.02-8.40); PLATELET COUNT 258 10/3/uL (150-400); RBC DISTRIBUTION WIDTH 16.5 % (12.0-16.0); RED CELL COUNT 2.74 10/6/uL (4.0-5.6); WHITE BLOOD CELLS 9.3 10/3/uL (4.5-10.5)
[2016-12-26 01:53] LABS: MANUAL DIFF NO %
[2016-12-26 02:05] LABS: A/G RATIO 0.6 (0.7-1.9); ALBUMIN 2.5 G/DL (3.5-5.0); ALKALINE PHOSPHATASE 137 U/L (45-117); BUN (BLOOD UREA NITROGEN) 79 MG/DL (6-23); CALCIUM, SERUM 8.6 MG/DL (8.5-10.4); CHLORIDE, SERUM 94 MMOL/L (96-112); CO2 (CARBON DIOXIDE) 27 MMOL/L (24-34); CPK 21 U/L (0-200); CREATININE 2.34 MG/DL (0.55-1.02); GFR AFRICAN AMERICAN 23 ML/MIN (>=60); GFR NON AFRICAN AMERICAN 20 ML/MIN (>=60); GLOBULIN 3.9 G/DL (2.5-4.1); GLUCOSE, SERUM 370 MG/DL (60-99); MYOGLOBIN, SERUM 52 NG/ML (0-85); POTASSIUM, SERUM 4.7 MMOL/L (3.5-5.3); SGOT(AST) 10 U/L (5-40); SGPT(ALT) 14 U/L (5-65); SODIUM, SERUM 131 MMOL/L (135-148); TOTAL BILIRUBIN 0.3 MG/DL (0-1.2); TOTAL PROTEIN 6.4 G/DL (6.0-8.5); TROPONIN I <0.02 NG/ML (<0.05)
[2016-12-26 07:40] LABS: CREATININE, URINE 48.4 MG/DL
[2016-12-26 10:46] LABS: GLYCOHEMOGLOBIN (HbA1c) 10.1 % (4.7-6.1)
[2016-12-27 04:44] LABS: ALBUMIN 2.4 G/DL (3.5-5.0); BUN (BLOOD UREA NITROGEN) 77 MG/DL (6-23); CO2 (CARBON DIOXIDE) 26 MMOL/L (24-34); CREATININE 1.97 MG/DL (0.55-1.02); GFR AFRICAN AMERICAN 28 ML/MIN (>=60); GFR NON AFRICAN AMERICAN 24 ML/MIN (>=60); POTASSIUM, SERUM 5.1 MMOL/L (3.5-5.3)
[2016-12-27 04:47] LABS: CALCIUM, SERUM 8.4 MG/DL (8.5-10.4); CHLORIDE, SERUM 104 MMOL/L (96-112); GLUCOSE, SERUM 253 MG/DL (60-99); SODIUM, SERUM 139 MMOL/L (135-148)
[2016-12-28 06:08] LABS: BASOPHILS 0.1 %; BASOPHILS ABSOLUTE 0.01 10/3/uL (0.0-0.16); EOSINOPHILS 2.3 %; EOSINOPHILS ABSOLUTE 0.19 10/3/uL (0.0-0.53); HEMATOCRIT 28.4 % (36.0-48.0); HEMOGLOBIN 8.8 g/dL (12.0-16.0); IMMATURE GRANULOCYTES 3.1 %; IMMATURE GRANULOCYTES ABSOLUTE 0.26 10/3/uL (0.0-0.11); LYMPHOCYTES 14.4 %; LYMPHOCYTES ABSOLUTE 1.19 10/3/uL (0.67-4.30); MEAN CORPUSCULAR HEMOGLOB 30.2 pg (26.0-34.0); MEAN CORPUSCULAR VOLUME 97.6 fL (80-100); MEAN PLATELET VOLUME 9.6 fL (9.2-13.0); MONOCYTES 7.6 %; MONOCYTES ABSOLUTE 0.63 10/3/uL (0.21-1.20); NEUTROPHILS 72.5 %; NEUTROPHILS ABSOLUTE 6.01 10/3/uL (2.02-8.40); PLATELET COUNT 297 10/3/uL (150-400); RBC DISTRIBUTION WIDTH 16.4 % (12.0-16.0); RED CELL COUNT 2.91 10/6/uL (4.0-5.6); WHITE BLOOD CELLS 8.3 10/3/uL (4.5-10.5)
[2016-12-28 06:09] LABS: MANUAL DIFF NO %
[2016-12-28 06:19] LABS: BUN (BLOOD UREA NITROGEN) 65 MG/DL (6-23); CALCIUM, SERUM 9.5 MG/DL (8.5-10.4); CHLORIDE, SERUM 101 MMOL/L (96-112); CO2 (CARBON DIOXIDE) 24 MMOL/L (24-34); CREATININE 1.87 MG/DL (0.55-1.02); GFR AFRICAN AMERICAN 30 ML/MIN (>=60); GFR NON AFRICAN AMERICAN 26 ML/MIN (>=60); GLUCOSE, SERUM 275 MG/DL (60-99); POTASSIUM, SERUM 4.7 MMOL/L (3.5-5.3); SODIUM, SERUM 137 MMOL/L (135-148)
[2016-12-30 05:03] LABS: BASOPHILS 0.1 %; BASOPHILS ABSOLUTE 0.01 10/3/uL (0.0-0.16); EOSINOPHILS 0.5 %; EOSINOPHILS ABSOLUTE 0.06 10/3/uL (0.0-0.53); HEMATOCRIT 28.7 % (36.0-48.0); HEMOGLOBIN 8.9 g/dL (12.0-16.0); IMMATURE GRANULOCYTES 1.7 %; IMMATURE GRANULOCYTES ABSOLUTE 0.21 10/3/uL (0.0-0.11); LYMPHOCYTES 9.6 %; MEAN CORPUSCULAR HEMOGLOB 30.5 pg (26.0-34.0); MEAN CORPUSCULAR VOLUME 98.3 fL (80-100); MEAN PLATELET VOLUME 9.3 fL (9.2-13.0); MONOCYTES 9.2 %; MONOCYTES ABSOLUTE 1.16 10/3/uL (0.21-1.20); NEUTROPHILS 78.9 %; NEUTROPHILS ABSOLUTE 9.91 10/3/uL (2.02-8.40); PLATELET COUNT 287 10/3/uL (150-400); RBC DISTRIBUTION WIDTH 16.5 % (12.0-16.0); RED CELL COUNT 2.92 10/6/uL (4.0-5.6)
[2016-12-30 05:04] LABS: MANUAL DIFF NO %; WHITE BLOOD CELLS 12.6 10/3/uL (4.5-10.5)
[2016-12-30 05:28] LABS: ALKALINE PHOSPHATASE 131 U/L (45-117); CALCIUM, SERUM 9.5 MG/DL (8.5-10.4); CHLORIDE, SERUM 100 MMOL/L (96-112); CO2 (CARBON DIOXIDE) 26 MMOL/L (24-34); CREATININE 1.54 MG/DL (0.55-1.02); GFR AFRICAN AMERICAN 38 ML/MIN (>=60); GFR NON AFRICAN AMERICAN 33 ML/MIN (>=60); GLUCOSE, SERUM 293 MG/DL (60-99); POTASSIUM, SERUM 4.6 MMOL/L (3.5-5.3); SGOT(AST) 9 U/L (5-40); SGPT(ALT) 14 U/L (5-65); SODIUM, SERUM 136 MMOL/L (135-148); TOTAL BILIRUBIN 0.5 MG/DL (0-1.2)
[2016-12-30 05:30] LABS: BUN (BLOOD UREA NITROGEN) 54 MG/DL (6-23)
[2016-12-30 06:05] LABS: A/G RATIO 0.5 (0.7-1.9); ALBUMIN 2.3 G/DL (3.5-5.0)
[2016-12-30 06:13] LABS: GLOBULIN 4.7 G/DL (2.5-4.1)
[2016-12-30 19:38] LABS: ASCORBIC ACID (UR NOT ORDER) NEG (NEG); BILIRUBIN, URINE NEGATIVE (NEG); KETONE, URINE NEGATIVE (NEG); LEUKOCYTE ESTERASE(NOT OR SMALL (NEG); WBC (NOT ORDERED) (RFLEX) 3 (0-5)
[2016-12-30 20:59] LABS: T PROTEIN (ELECT)(NOT OR 6.2 G/DL (6.0-8.5)
[2016-12-31 04:24] LABS: BASOPHILS 0.1 %; BASOPHILS ABSOLUTE 0.01 10/3/uL (0.0-0.16); EOSINOPHILS 0.1 %; EOSINOPHILS ABSOLUTE 0.02 10/3/uL (0.0-0.53); HEMATOCRIT 26.9 % (36.0-48.0); HEMOGLOBIN 8.3 g/dL (12.0-16.0); IMMATURE GRANULOCYTES 1.1 %; IMMATURE GRANULOCYTES ABSOLUTE 0.16 10/3/uL (0.0-0.11); LYMPHOCYTES ABSOLUTE 0.98 10/3/uL (0.67-4.30); MEAN CORPUS HGB CONC 30.9 g/dL (32.0-36.0); MEAN CORPUSCULAR HEMOGLOB 30.5 pg (26.0-34.0); MEAN CORPUSCULAR VOLUME 98.9 fL (80-100); MEAN PLATELET VOLUME 9.6 fL (9.2-13.0); MONOCYTES 2.7 %; MONOCYTES ABSOLUTE 0.37 10/3/uL (0.21-1.20); NEUTROPHILS ABSOLUTE 12.38 10/3/uL (2.02-8.40); PLATELET COUNT 313 10/3/uL (150-400); RBC DISTRIBUTION WIDTH 16.1 % (12.0-16.0); RED CELL COUNT 2.72 10/6/uL (4.0-5.6); WHITE BLOOD CELLS 13.9 10/3/uL (4.5-10.5)
[2016-12-31 04:39] LABS: MANUAL DIFF NO %
[2016-12-31 04:39] LABS: CALCIUM, SERUM 9.6 MG/DL (8.5-10.4); CHLORIDE, SERUM 100 MMOL/L (96-112); CO2 (CARBON DIOXIDE) 29 MMOL/L (24-34); CREATININE 1.81 MG/DL (0.55-1.02); GFR AFRICAN AMERICAN 31 ML/MIN (>=60); GFR NON AFRICAN AMERICAN 27 ML/MIN (>=60); POTASSIUM, SERUM 5.2 MMOL/L (3.5-5.3); SODIUM, SERUM 138 MMOL/L (135-148)
[2016-12-31 04:40] LABS: BUN (BLOOD UREA NITROGEN) 59 MG/DL (6-23); GLUCOSE, SERUM 184 MG/DL (60-99)
[2016-12-31 08:20] LABS: A/G 0.72 RATIO (0.9-2.10); ALB RELATIVE % 41.8 % (60.0-89.0); ALBUMIN (ELECTRO) 2.59 GM/DL (3.2-5.5); ALPHA 1 (ELECTRO) 0.48 GM/DL (0.1-0.4); ALPHA 1 RELAT % (NOT ORD) 7.8 % (1.0-4.0); ALPHA 2 (ELECTRO) 1.53 GM/DL (0.5-1.10); ALPHA 2 RELAT % 24.7 % (4.5-26.0); BETA GLOBULIN (SPE) 0.84 GM/DL (0.60-1.30); BETA RELATIVE % 13.6 % (9.0-22.0); GAMMA GLOBULIN (SPE) 0.75 G/DL (0.70-1.60); GAMMA RELAT % 12.1 % (6.0-22.0)
[2017-01-01 06:08] LABS: BASOPHILS 0.1 %; BASOPHILS ABSOLUTE 0.01 10/3/uL (0.0-0.16); EOSINOPHILS 0.1 %; EOSINOPHILS ABSOLUTE 0.01 10/3/uL (0.0-0.53); HEMATOCRIT 25.9 % (36.0-48.0); HEMOGLOBIN 8.2 g/dL (12.0-16.0); IMMATURE GRANULOCYTES 1.6 %; LYMPHOCYTES 7.9 %; MEAN CORPUS HGB CONC 31.7 g/dL (32.0-36.0); MEAN CORPUSCULAR HEMOGLOB 30.7 pg (26.0-34.0); MEAN PLATELET VOLUME 9.6 fL (9.2-13.0); MONOCYTES 5.9 %; MONOCYTES ABSOLUTE 0.75 10/3/uL (0.21-1.20); NEUTROPHILS 84.4 %; NEUTROPHILS ABSOLUTE 10.68 10/3/uL (2.02-8.40); NUCLEATED RED BLOOD CELLS 0.5 /100WBC (0-0); PLATELET COUNT 352 10/3/uL (150-400); RBC DISTRIBUTION WIDTH 15.7 % (12.0-16.0); RED CELL COUNT 2.67 10/6/uL (4.0-5.6); WHITE BLOOD CELLS 12.7 10/3/uL (4.5-10.5)
[2017-01-01 06:17] LABS: MANUAL DIFF NO %
[2017-01-01 06:23] LABS: ALBUMIN 2.2 G/DL (3.5-5.0); CALCIUM, SERUM 9.3 MG/DL (8.5-10.4); CHLORIDE, SERUM 95 MMOL/L (96-112); CO2 (CARBON DIOXIDE) 26 MMOL/L (24-34); CREATININE 1.84 MG/DL (0.55-1.02); GFR AFRICAN AMERICAN 31 ML/MIN (>=60); GFR NON AFRICAN AMERICAN 26 ML/MIN (>=60); PHOSPHORUS, SERUM 3.1 MG/DL (2.5-4.5); POTASSIUM, SERUM 5.2 MMOL/L (3.5-5.3); SODIUM, SERUM 132 MMOL/L (135-148)
[2017-01-01 06:24] LABS: BUN (BLOOD UREA NITROGEN) 78 MG/DL (6-23); GLUCOSE, SERUM 338 MG/DL (60-99)
[2017-01-01 07:08] LABS: PROCALCITONIN 1.67 ng/mL (<0.5)
[2017-01-02 06:41] LABS: BASOPHILS 0.1 %; BASOPHILS ABSOLUTE 0.01 10/3/uL (0.0-0.16); EOSINOPHILS 0.4 %; EOSINOPHILS ABSOLUTE 0.04 10/3/uL (0.0-0.53); HEMATOCRIT 27.5 % (36.0-48.0); HEMOGLOBIN 8.7 g/dL (12.0-16.0); IMMATURE GRANULOCYTES 2.1 %; IMMATURE GRANULOCYTES ABSOLUTE 0.22 10/3/uL (0.0-0.11); LYMPHOCYTES 16.2 %; LYMPHOCYTES ABSOLUTE 1.66 10/3/uL (0.67-4.30); MEAN CORPUS HGB CONC 31.6 g/dL (32.0-36.0); MEAN CORPUSCULAR HEMOGLOB 30.3 pg (26.0-34.0); MEAN CORPUSCULAR VOLUME 95.8 fL (80-100); MEAN PLATELET VOLUME 9.5 fL (9.2-13.0); MONOCYTES 7.1 %; MONOCYTES ABSOLUTE 0.73 10/3/uL (0.21-1.20); NEUTROPHILS 74.1 %; NEUTROPHILS ABSOLUTE 7.61 10/3/uL (2.02-8.40); PLATELET COUNT 340 10/3/uL (150-400); RBC DISTRIBUTION WIDTH 15.5 % (12.0-16.0); RED CELL COUNT 2.87 10/6/uL (4.0-5.6); WHITE BLOOD CELLS 10.3 10/3/uL (4.5-10.5)
[2017-01-02 06:51] LABS: BUN (BLOOD UREA NITROGEN) 76 MG/DL (6-23); CHLORIDE, SERUM 98 MMOL/L (96-112); CO2 (CARBON DIOXIDE) 26 MMOL/L (24-34); GFR AFRICAN AMERICAN 42 ML/MIN (>=60); GFR NON AFRICAN AMERICAN 37 ML/MIN (>=60); POTASSIUM, SERUM 4.8 MMOL/L (3.5-5.3); SODIUM, SERUM 135 MMOL/L (135-148)
[2017-01-02 06:56] LABS: GLUCOSE, SERUM 110 MG/DL (60-99)
[2017-01-02 06:58] LABS: MANUAL DIFF NO %
[2017-01-02 08:07] LABS: C-REACTIVE PROTEIN 91.2 MG/L (<8.0)
[2017-01-03 05:11] LABS: BUN (BLOOD UREA NITROGEN) 78 MG/DL (6-23); CALCIUM, SERUM 8.7 MG/DL (8.5-10.4); CHLORIDE, SERUM 97 MMOL/L (96-112); CO2 (CARBON DIOXIDE) 25 MMOL/L (24-34); CREATININE 1.35 MG/DL (0.55-1.02); GFR AFRICAN AMERICAN 44 ML/MIN (>=60); GFR NON AFRICAN AMERICAN 38 ML/MIN (>=60); GLUCOSE, SERUM 120 MG/DL (60-99); POTASSIUM, SERUM 5.1 MMOL/L (3.5-5.3); SODIUM, SERUM 136 MMOL/L (135-148)
[2017-01-04 06:21] LABS: BASOPHILS 0.1 %; BASOPHILS ABSOLUTE 0.01 10/3/uL (0.0-0.16); EOSINOPHILS 1.3 %; EOSINOPHILS ABSOLUTE 0.15 10/3/uL (0.0-0.53); HEMATOCRIT 27.5 % (36.0-48.0); HEMOGLOBIN 8.7 g/dL (12.0-16.0); IMMATURE GRANULOCYTES 3.8 %; IMMATURE GRANULOCYTES ABSOLUTE 0.45 10/3/uL (0.0-0.11); LYMPHOCYTES 18.1 %; LYMPHOCYTES ABSOLUTE 2.14 10/3/uL (0.67-4.30); MANUAL DIFF NO %; MEAN CORPUS HGB CONC 31.6 g/dL (32.0-36.0); MEAN CORPUSCULAR HEMOGLOB 30.5 pg (26.0-34.0); MEAN CORPUSCULAR VOLUME 96.5 fL (80-100); MEAN PLATELET VOLUME 9.3 fL (9.2-13.0); MONOCYTES 5.7 %; MONOCYTES ABSOLUTE 0.68 10/3/uL (0.21-1.20); NEUTROPHILS ABSOLUTE 8.42 10/3/uL (2.02-8.40); PLATELET COUNT 355 10/3/uL (150-400); RBC DISTRIBUTION WIDTH 15.8 % (12.0-16.0); RED CELL COUNT 2.85 10/6/uL (4.0-5.6); WHITE BLOOD CELLS 11.9 10/3/uL (4.5-10.5)
[2017-01-04 06:28] LABS: BUN (BLOOD UREA NITROGEN) 74 MG/DL (6-23); CHLORIDE, SERUM 98 MMOL/L (96-112); CO2 (CARBON DIOXIDE) 26 MMOL/L (24-34); GFR AFRICAN AMERICAN 42 ML/MIN (>=60); GFR NON AFRICAN AMERICAN 37 ML/MIN (>=60); GLUCOSE, SERUM 105 MG/DL (60-99); POTASSIUM, SERUM 4.6 MMOL/L (3.5-5.3); SODIUM, SERUM 135 MMOL/L (135-148)
[2017-01-05 06:22] LABS: HEMATOCRIT 27.8 % (36.0-48.0); HEMOGLOBIN 8.7 g/dL (12.0-16.0); MEAN CORPUS HGB CONC 31.3 g/dL (32.0-36.0); MEAN CORPUSCULAR HEMOGLOB 30.5 pg (26.0-34.0); MEAN CORPUSCULAR VOLUME 97.5 fL (80-100); MEAN PLATELET VOLUME 9.4 fL (9.2-13.0); PLATELET COUNT 370 10/3/uL (150-400); RBC DISTRIBUTION WIDTH 16.2 % (12.0-16.0); RED CELL COUNT 2.85 10/6/uL (4.0-5.6); WHITE BLOOD CELLS 11.9 10/3/uL (4.5-10.5)
[2017-01-05 06:27] LABS: BUN (BLOOD UREA NITROGEN) 64 MG/DL (6-23); CALCIUM, SERUM 9.2 MG/DL (8.5-10.4); CHLORIDE, SERUM 102 MMOL/L (96-112); CO2 (CARBON DIOXIDE) 26 MMOL/L (24-34); CREATININE 1.37 MG/DL (0.55-1.02); GFR AFRICAN AMERICAN 44 ML/MIN (>=60); GFR NON AFRICAN AMERICAN 38 ML/MIN (>=60); GLUCOSE, SERUM 170 MG/DL (60-99); POTASSIUM, SERUM 5.1 MMOL/L (3.5-5.3); SODIUM, SERUM 136 MMOL/L (135-148)
[2017-01-05 06:28] LABS: MANUAL DIFF YES %
[2017-01-05 07:55] LABS: BAND NEUTROPHILS 2 %; EOSINOPHILS 2 %; EOSINOPHILS ABSOLUTE (CALC) 0.24 10/3/uL (0.0-0.53); LYMPHOCYTES 15 %; LYMPHOCYTES ABSOLUTE (CALC) 1.79 10/3/uL (0.67-4.30); MONOCYTES 8 %; MONOCYTES ABSOLUTE (CALC) 0.95 10/3/uL (0.21-1.20); NEUTROPHILS ABSOLUTE (CALC) 8.93 10/3/uL (2.02-8.40); PLATELET ESTIMATE ADQ (ADEQUATE); RBC MORPHOLOGY NORM (NORMAL); SEGMENTED NEUTROPHIL (0) 73 %; TOTAL NUCLEATED CELLS 100
[2017-01-05 11:36] LABS: ANA PATTERN HOMOGENEOUS
[2017-01-05 16:52] LABS: FERRITIN 351 NG/ML (8-252)
[2017-01-06 05:17] LABS: HEMATOCRIT 29.5 % (36.0-48.0); HEMOGLOBIN 9.1 g/dL (12.0-16.0); MEAN CORPUS HGB CONC 30.8 g/dL (32.0-36.0); MEAN CORPUSCULAR HEMOGLOB 30.6 pg (26.0-34.0); MEAN CORPUSCULAR VOLUME 99.3 fL (80-100); MEAN PLATELET VOLUME 9.3 fL (9.2-13.0); PLATELET COUNT 369 10/3/uL (150-400); RBC DISTRIBUTION WIDTH 16.4 % (12.0-16.0); RED CELL COUNT 2.97 10/6/uL (4.0-5.6); WHITE BLOOD CELLS 11.9 10/3/uL (4.5-10.5)
[2017-01-06 05:18] LABS: MANUAL DIFF YES %
[2017-01-06 05:33] LABS: CALCIUM, SERUM 8.9 MG/DL (8.5-10.4); CHLORIDE, SERUM 104 MMOL/L (96-112); CO2 (CARBON DIOXIDE) 25 MMOL/L (24-34); GFR AFRICAN AMERICAN 46 ML/MIN (>=60); GFR NON AFRICAN AMERICAN 40 ML/MIN (>=60); SODIUM, SERUM 138 MMOL/L (135-148)
[2017-01-06 05:39] LABS: BUN (BLOOD UREA NITROGEN) 58 MG/DL (6-23); GLUCOSE, SERUM 82 MG/DL (60-99)
[2017-01-06 05:49] LABS: BAND NEUTROPHILS 6 %; IMMATURE GRANS ABSOLUTE (CALC) 0.48 10/3/uL (0.0-0.11); LYMPHOCYTES 12 %; LYMPHOCYTES ABSOLUTE (CALC) 1.43 10/3/uL (0.67-4.30); METAMYELOCYTES 4 %; MONOCYTES 4 %; MONOCYTES ABSOLUTE (CALC) 0.48 10/3/uL (0.21-1.20); NEUTROPHILS ABSOLUTE (CALC) 9.52 10/3/uL (2.02-8.40); PLATELET ESTIMATE ADQ (ADEQUATE); RBC MORPHOLOGY NORM (NORMAL); SEGMENTED NEUTROPHIL (0) 74 %; TOTAL NUCLEATED CELLS 100
[2017-01-06 09:53] LABS: CYCLIC CITRULLINATED PEPTIDE <15.62 UNITS (<20)
== END 2017-01-07 14:18 | DRG 682 ==
LOC: ER 18:28 → 6NO 20:32
PROVIDERS: Emergency Medicine; Internal Medicine; Internal Medicine Nephrology; Nurse Practitioner Family; Student in an Organized Health Care Education/Training Program
DX: N17.9 Acute kidney failure, unspecified (principal); G93.41 Metabolic encephalopathy; L89.322 Pressure ulcer of left buttock, stage 2; E11.22 Type 2 diabetes mellitus with diabetic chronic kidney disease; I13.0 Hypertensive heart and chronic kidney disease with heart failure and stage 1 through stage 4 chronic kidney disease, or unspecified chronic kidney disease; E87.1 Hypo-osmolality and hyponatremia; K62.6 Ulcer of anus and rectum; I50.32 Chronic diastolic (congestive) heart failure; E11.40 Type 2 diabetes mellitus with diabetic neuropathy, unspecified; Z68.42 Body mass index [BMI] 45.0-49.9, adult; I48.0 Paroxysmal atrial fibrillation; E11.65 Type 2 diabetes mellitus with hyperglycemia; E11.610 Type 2 diabetes mellitus with diabetic neuropathic arthropathy; E86.0 Dehydration; I12.9 Hypertensive chronic kidney disease with stage 1 through stage 4 chronic kidney disease, or unspecified chronic kidney disease; D46.9 Myelodysplastic syndrome, unspecified; M10.9 Gout, unspecified; N18.4 Chronic kidney disease, stage 4 (severe); E66.01 Morbid (severe) obesity due to excess calories; I25.10 Atherosclerotic heart disease of native coronary artery without angina pectoris; G47.33 Obstructive sleep apnea (adult) (pediatric); E03.9 Hypothyroidism, unspecified; R62.7 Adult failure to thrive; G89.29 Other chronic pain; I70.218 Atherosclerosis of native arteries of extremities with intermittent claudication, other extremity; K59.00 Constipation, unspecified; W19.XXXA Unspecified fall, initial encounter; Z87.440 Personal history of urinary (tract) infections; Z95.1 Presence of aortocoronary bypass graft; Z90.710 Acquired absence of both cervix and uterus; Z90.49 Acquired absence of other specified parts of digestive tract
CPT/HCPCS: 71010; 73100-RT; 73130-RT; 73630-LT; 74000; 80048; 80053; 80069; 81001; 82140; 82533; 82550; 82570; 82607; 82728; 82962; 83036; 83735; 83874; 83935; 84100; 84145; 84155; 84165; 84300; 84439; 84443; 84484; 84550; 85025; 85610; 85730; 86039; 86140; 86200; 86334; 86431; 87086; 93005; 93931; 94762; 96374; 97110-GO; 97162-GP; 97166-GO; 97530-GP; 99291; A9270-GY; G8978-CM-GP; G8979-CL-GP; G8987-CK-GO; G8988-CJ-GO; J0885; J1980; J2405; J2920